=== PATIENT | male | born 1985 | race Hispanic/Latino ===

== ENCOUNTER 2016-08-22 14:54 | Emergency (ER) | payer MEDICARE ==
[~2016-08-22] VITALS: Ht 170.2 cm; Wt 109.5 kg
[~2016-08-22 14:54] MED LIST: CEPH-512 PO; IND40 PO; RISP3TAB PO; RISP4TAB PO; [UNRECOGNIZED DRUG - CODE] PO
[2016-08-22 15:06] VITALS: BP 167/101; PULSE 106; RESP 20; O2SAT 96
--- NOTE | 2016-08-22 15:51 | ED.REPORT ---
HPI-General Illness Date of Service Aug 22, 2016 ED Provider: Nursing Notes Stated Complaint: POSSIBLE ATRIAL FLUTTER, SENT FROM URGENT CARE Chief Complaint: Dysrhythmia/Cardiac Allergies: Coded Allergies: No Known Allergies (Unverified , 08/22/16) Scheduled Cephalexin (Keflex) 500 Mg Capsule 500 MG PO QID Propranolol-Expunged Drug, Do Not Renew! (Propranolol-Expunged Drug, Do Not Renew!) 40 Mg Tab 40 MG PO TID Your next dose of Ideral (Propranolol) 40mgm oral will tonight at bedtime. Risperidone-Expunged Drug, Do Not Renew! (Risperdal-Expunged Drug, Do Not Renew! ) 3 Mg Tablet 3 MG PO DAILY Your next Risperdal 3mgm oral dose will be tomorrow morning. Risperidone-Expunged Drug, Do Not Renew! (Risperdal-Expunged Drug, Do Not Renew! ) 4 Mg Tablet 4 MG PO HS Your next dose of Risperdal 4mgmn oral will be tonight at bedtime. Trazodone-Expunged Drug, Do Not Renew! (Trazodone-Expunged Drug, Do Not Renew!) 100 Mg Tablet 50 MG PO HS Your next dose of Desyrel (Trazodone) 50mgm oral will be tonight at bedtime. This dose can be repeated once during the night until 3AM, if needed for sleep. General Time Seen by MD: 15:51 Past Medical History Past Medical History Bipolar disorder Reports: Schizophrenia Past Surgical History None Family History Non-contributory Smoking History Unknown if Ever Smoker Social History Other Social History: Smokeless tobacco, Local resident Ambulatory Status Independent Physical Exam Vital Signs Vital Signs Date Time Temp Pulse Resp B/P Pulse Ox O2 Delivery O2 Flow Rate FiO2 08/22/16 15:06 36.6 106 20 167/101 96 Room Air Interpretation & Diagnostics Lab Results Interpretation Result Diagram: 08/22/16 1541 Test 08/22/16 15:41 White Blood Count 8.3th/mm3 (3.8-10.1) Red Blood Count 5.15mil/mm3 (4.40-5.80) Hemoglobin 15.1g/dL (13.8-17.2) Hematocrit 45.2% (41.0-50.0) Mean Corpuscular Volume 87.8fL (81-100) Mean Corpuscular Hemoglobin 29.3pg (27.0-35.0) Mean Corpuscular Hemoglobin Concent 33.4% (32.0-37.0) Red Cell Distribution Width 13.5% (12.3-15.4) Platelet Count 207bil/L (150-400) Neutrophils (%) (Auto) 62.5% (40-74) Lymphocytes (%) (Auto) 27.6% (14-46) Monocytes (%) (Auto) 7.7% (4-12) Eosinophils (%) (Auto) 1.6% (0-5) Basophils (%) (Auto) 0.1% (0-3) Hold [place] Top Tube Received (Received) Discharge & Departure Referrals: NOPCP (PCP) Nikky Feliciano MD Aug 22, 2016 15:51
[2016-08-22 15:56] LABS: BASOPHILS % (AUTO) 0.1 % (0-3); EOSINOPHILS % (AUTO) 1.6 % (0-5); MONOCYTES % (AUTO) 7.7 % (4-12); Mean Corpuscular Hemoglobin 29.3 pg (27.0-35.0); Mean Corpuscular Volume 87.8 fL (81-100); NEUTROPHILS % (AUTO) 62.5 % (40-74); Platelet Count 207 bil/L (150-400)
--- NOTE | 2016-08-22 16:08 | PCM.EDPN ---
ED Note Date of Service Aug 22, 2016 Patient initially seen in urgent care. We sent to the emergency room with concerns that he may be in atrial flutter. Was triaged and placed into room 1. At that point he became violent and very aggressive with our triage nurse and stormed out of the emergency department prior to being seen by emergency room provider. Clearly in no acute distress medically, speaking full sentences and able to walk without any difficulties Nikky Feliciano MD Aug 22, 2016 16:08
[2016-08-22 16:10] LABS: Magnesium 2.1 mg/dL (1.6-2.6)
== END 2016-08-22 16:14 | disposition left against medical advice (07) ==
LOC: SED 14:54
DX: Z53.21 Procedure and treatment not carried out due to patient leaving prior to being seen by health care provider (principal)

== ENCOUNTER 2016-09-21 01:46 | Emergency (ER) | payer MEDICARE ==
[~2016-09-21] VITALS: Ht 170.2 cm; Wt 110.5 kg
--- NOTE | 2016-09-21 01:50 | ED.REPORT ---
HPI-Extremity Problem Lower Date of Service Sep 21, 2016 ED Provider: Douglas Oconnor MD Patient is a 30 year old male with a history of schizophrenia, bipolar disorder and anxiety who presents to the ED with bilateral foot pain of unknown onset. Specifically he has pain at the soles of his feet, worse on the right than on the left. The states that he is not homeless but that he spends a lot of time walking. Due to his anxiety he always needs to be moving, so he takes really long walks. He walked from [place] to [facility] yesterday. Patient admits that he wears the same shoes everyday but he did change is socks yesterday. The patient is concerned that his feet have become infected. He also states that he has ingrown toenails and requests to have his toenails clipped. Nursing Notes Stated Complaint: LT/RT FOOT PAIN Nursing Notes Reviewed: Yes Allergies: Coded Allergies: No Known Allergies (Unverified , 08/22/16) Scheduled Cephalexin (Keflex) 500 Mg Capsule 500 MG PO QID Propranolol-Expunged Drug, Do Not Renew! (Propranolol-Expunged Drug, Do Not Renew!) 40 Mg Tab 40 MG PO TID Your next dose of Ideral (Propranolol) 40mgm oral will tonight at bedtime. Risperidone-Expunged Drug, Do Not Renew! (Risperdal-Expunged Drug, Do Not Renew! ) 3 Mg Tablet 3 MG PO DAILY Your next Risperdal 3mgm oral dose will be tomorrow morning. Risperidone-Expunged Drug, Do Not Renew! (Risperdal-Expunged Drug, Do Not Renew! ) 4 Mg Tablet 4 MG PO HS Your next dose of Risperdal 4mgmn oral will be tonight at bedtime. Trazodone-Expunged Drug, Do Not Renew! (Trazodone-Expunged Drug, Do Not Renew!) 100 Mg Tablet 50 MG PO HS Your next dose of Desyrel (Trazodone) 50mgm oral will be tonight at bedtime. This dose can be repeated once during the night until 3AM, if needed for sleep. General Time Seen by MD: 01:50 Chief Complaint Foot injury right, Foot injury left Hx Obtained From: Patient Arrived By: Walk-in Onset Occurred: Onset unknown Location: : Foot left: Foot right Quality: Painful Severity: Current: Moderate Severity: Maximum: Moderate Recent Healthcare: No recent doctor visit, No recent hospitalization Similar Sx Previous: Yes Past Medical History Past Medical History Bipolar disorder Anxiety Schizophrenia Past Surgical History None Family History Non-contributory Smoking History Unknown if Ever Smoker Social History Other Social History: Smokeless tobacco, Poor social support, Local resident Ambulatory Status Independent Review of Systems Constitutional: Denies: Chills, Fever Musculoskeletal: Reports: Extremity pain, Denies: Joint pain Complete sys rev & neg: except as marked. Physical Exam Initial Vital Signs Vital Signs (First) Date Time Temp Pulse Resp B/P Pulse Ox O2 Delivery O2 Flow Rate FiO2 09/21/16 01:51 36.3 119 18 140/95 97 Room Air Initial VS: Reviewed Skin: Warm, Dry, No cyanosis Neurologic: Alert, Oriented, Nonfocal Lower Extremity / Pelvis / MS: Full range of motion, Neurologic intact, Vascular intact Ankle / Foot: Neurologic intact, Vascular intact Patches of blister on his bilateral feet, hyperkeratotic and hyperhydrated. Present on the great toes, balls of the feet over the MTPs, and on the heels. Long toenails. General/Constitutional: Awake, Alert, No acute distress Appearance / Presentation: Positive: Obese Respiratory / Chest: No respiratory distress Cardiovascular: Heart rate NL, Peripheral circulation NL Skin: Warm, Dry Head / Eyes: Normocephalic, PERRL ENT: Airway patent Neck: Supple, Full range of motion Upper Extremity / MS: Full range of motion, No deformity Re-Eval/Medical Decision Med Decision/Clinical Course 30-year-old schizophrenia presents with wet immersion feet. These were allowed to dry with improvement here. He was given fresh socks, Goldbond powder, and is discharged in stable condition. He needs nail trimming, we do not have here sufficient to deal with his second nails. He is referred to podiatry clinic. Source of Hx: Old records Re-Evaluation/Progress : Time of Eval: 02:54 Patient Status: Condition improved Re-Evaluation/Progress Note: Patient was given new socks and let his feet dry. Patient understands and agrees with the plan to be discharged home. Discharge instructions and follow-up discussed. All questions were addressed. Return to the ED warnings given. Counseled Regarding: Diagnosis, Need for follow-up, When/why to return to ED Discharge & Departure Impression: Primary Impression: Trench feet Encounter type: initial encounter Laterality: unspecified laterality Qualified Code: T69.029A - Immersion foot, unspecified foot, initial encounter Additional Impression: Schizophrenia Disposition: Home Discharge Condition All VS Reviewed: Yes Condition: Stable Additional Instructions: It is important to keep your feet dry. Change socks if you get wet feet. Make sure you are shoes fit well and do not chafe your skin. You can use Gold Lal powder on your socks and in your shoes to keep your feet dry. Follow-up at podiatry clinic. Referrals: Julee Victoria DPM [facility] Scribe Attestation Portions of this note were transcribed by Jael Brandon. I, Dr. Oconnor personally performed the history, physical exam and medical decision-making; I reviewed and confirmed the accuracy of the information in the transcribed note. Signed by: Davin Alvarez, 09/21/2016 0256 copies to: Julee Victoria DPM; [facility] Douglas Oconnor MD Sep 21, 2016 01:50 Jael Brandon Sep 21, 2016 02:01
[2016-09-21 01:51] VITALS: BP 140/95; PULSE 119; RESP 18; O2SAT 97
== END 2016-09-21 02:59 | disposition home or self-care (01) ==
LOC: SED 01:46
DX: T69.021A Immersion foot, right foot, initial encounter (principal); T69.022A Immersion foot, left foot, initial encounter; X31.XXXA Exposure to excessive natural cold, initial encounter; Y92.9 Unspecified place or not applicable; Y93.01 Activity, walking, marching and hiking; Y99.8 Other external cause status; F20.9 Schizophrenia, unspecified; F31.9 Bipolar disorder, unspecified; F41.9 Anxiety disorder, unspecified

== ENCOUNTER 2016-09-30 18:56 | Emergency (ER) | payer MEDICARE ==
[~2016-09-30] VITALS: Ht 172.7 cm; Wt 112.7 kg
[2016-09-30 19:01] VITALS: BP 135/75; PULSE 126; RESP 16; O2SAT 95
--- NOTE | 2016-09-30 21:06 | ED.REPORT ---
HPI-Extremity Problem Lower Date of Service September 30, 2016 ED Provider: Mani Kapadia MD Pt is a 30 y.o. homeless male with a hx of schizophrenia and bipolar disorder who presents to the ED c/o ingrown toenails. Pt states he used to go [place]the mall" to get them clipped but has not been for a while and they are beginning to become painful. Pt has no further complaints at this time. Nursing Notes Stated Complaint: INGROWN TOENAILS Chief Complaint: Extremity Trauma Nursing Notes Reviewed: Yes Allergies: Coded Allergies: No Known Allergies (Unverified , 09/30/16) Scheduled Cephalexin (Keflex) 500 Mg Capsule 500 MG PO QID Propranolol-Expunged Drug, Do Not Renew! (Propranolol-Expunged Drug, Do Not Renew!) 40 Mg Tab 40 MG PO TID Your next dose of Ideral (Propranolol) 40mgm oral will tonight at bedtime. Risperidone-Expunged Drug, Do Not Renew! (Risperdal-Expunged Drug, Do Not Renew! ) 3 Mg Tablet 3 MG PO DAILY Your next Risperdal 3mgm oral dose will be tomorrow morning. Risperidone-Expunged Drug, Do Not Renew! (Risperdal-Expunged Drug, Do Not Renew! ) 4 Mg Tablet 4 MG PO HS Your next dose of Risperdal 4mgmn oral will be tonight at bedtime. Trazodone-Expunged Drug, Do Not Renew! (Trazodone-Expunged Drug, Do Not Renew!) 100 Mg Tablet 50 MG PO HS Your next dose of Desyrel (Trazodone) 50mgm oral will be tonight at bedtime. This dose can be repeated once during the night until 3AM, if needed for sleep. General Time Seen by : 21:06 Chief Complaint Other (Ingrown toenails) Hx Obtained From: Patient Arrived By: Walk-in Onset Occurred: Onset unknown Location: : Toe left 1: Toe left 2: Toe left 3: Toe left 4: Toe left 5: Toe right 1: Toe right 2: Toe right 3: Toe right 4: Toe right 5 Quality: Painful Severity: Current: Mild Recent Healthcare: No recent hospitalization Past Medical History Past Medical History Bipolar disorder Anxiety Schizophrenia Past Surgical History None Family History Non-contributory Smoking History Unknown if Ever Smoker Social History Other Social History: Smokeless tobacco, Poor social support, Local resident Ambulatory Status Independent Review of Systems Ingrown toenails Constitutional: Denies: Chills, Fever Complete sys rev & neg: except as marked. GI: Denies: Nausea, Vomiting Physical Exam Initial Vital Signs Vital Signs (First) Date Time Temp Pulse Resp B/P Pulse Ox O2 Delivery O2 Flow Rate FiO2 09/30/16 19:01 36.2 126 16 135/75 95 09/30/16 22:17 Room Air Initial VS: Reviewed, Vital signs abnormal Head / Eyes: Atraumatic, Normocephalic, PERRL Respiratory: Breath sounds normal, No respiratory distress Cardiovascular: Regular rate & rhythm, Intact distal pulses Abdomen / GI: No distention Upper Extremities: Vascular intact, Neuro intact Skin: Warm, Dry, No cyanosis Psychiatric: Mood/affect normal, Behavior normal, Normal thought content Lower Extremity / Pelvis / MS: Neurologic intact, Vascular intact Ankle / Foot: No deformity, Neurologic intact, Vascular intact Thickened and curved toenails, bilateral feet. General/Constitutional: Awake, Alert, No acute distress, Well appearing, Well developed, Well hydrated, Well nourished, Not toxic appearing Appearance / Presentation: Positive: Obese Neurologic: Oriented X3, Speech NL, No motor deficits Procedures Ingrown Toenail Removal Ingrown Toenail Removal: Clipping of thickened, curved and embedded toenails, bilateral feet. Time: 21:45 Procedure Performed by: ED physician Indication: Pain, Infection Consent / Setup / Site Prep: Consent from patient, Time-out performed, Hand hygiene observed Digit Involved: Great toe right, 2nd toe right, 3rd toe right, 4th toe right , 5th toe right, Great toe left, 2nd toe left, 3rd toe left, 4th toe left, 5th toe left Post-Procedure / Complications: No complications, Condition improved, Tolerated procedure well, Patient stable Re-Eval/Medical Decision Med Decision/Clinical Course 30-year-old male who presents for routine medical care of his thickened curling embedded nails. These were trimmed without incident. Source of Hx: Old records, EMS Re-Evaluation/Progress : Time of Eval: 21:45 Re-Evaluation/Progress Note: Procedure performed. Discussed plan for discharge, pt understands and agrees with plan. Counseled Regarding: Diagnosis, Lab results Discharge & Departure Impression: Primary Impression: Toenail fungus Additional Impressions: Dysplastic toenail Embedded toenail Hypertrophic toenail Incurved toenail Disposition: Home Discharge Condition All VS Reviewed: Yes Condition: Improved Additional Instructions: All of your nails were trimmed. Referrals: NOPCP (PCP) Davin Attestation Portions of this note were transcribed by Lazaro Reyez. I, personally performed the history, physical exam and medical decision-making; I reviewed and confirmed the accuracy of the information in the transcribed note. Signed by: Davin Becker, 09/30/16 and 2305. Mani Kapadia MD September 30, 2016 21:06 LAZARO REYEZ September 30, 2016 21:11
[2016-09-30 22:17] VITALS: BP 129/72; PULSE 102; RESP 16; O2SAT 97
== END 2016-09-30 22:17 | disposition home or self-care (01) ==
LOC: SED 18:56
DX: B35.1 Tinea unguium (principal); L60.2 Onychogryphosis; R23.9 Unspecified skin changes; Z86.59 Personal history of other mental and behavioral disorders

== ENCOUNTER 2016-12-03 18:30 | Emergency (ER) | payer MEDICARE ==
[~2016-12-03] VITALS: Ht 172.7 cm; Wt 111.4 kg
[2016-12-03 18:39] VITALS: BP 113/65; PULSE 115; RESP 14; O2SAT 93
--- NOTE | 2016-12-03 18:55 | ED.REPORT ---
HPI-General Illness Date of Service Dec 03, 2016 ED Provider: Dr. Tulio Meza Patient is a 30 year old male with a history of schizophrenia, bipolar disorder and anxiety who presents to the ED via EMS after being found intoxicated laying on the road in front of [place] house. Associated symptoms include slurred speech. Nursing Notes Stated Complaint: INTOXICATED Chief Complaint: Substance Abuse Nursing Notes Reviewed: Yes Allergies: Coded Allergies: No Known Allergies (Unverified , 12/03/16) Scheduled Cephalexin (Keflex) 500 Mg Capsule 500 MG PO QID Propranolol-Expunged Drug, Do Not Renew! (Propranolol-Expunged Drug, Do Not Renew!) 40 Mg Tab 40 MG PO TID Your next dose of Ideral (Propranolol) 40mgm oral will tonight at bedtime. Risperidone-Expunged Drug, Do Not Renew! (Risperdal-Expunged Drug, Do Not Renew! ) 3 Mg Tablet 3 MG PO DAILY Your next Risperdal 3mgm oral dose will be tomorrow morning. Risperidone-Expunged Drug, Do Not Renew! (Risperdal-Expunged Drug, Do Not Renew! ) 4 Mg Tablet 4 MG PO HS Your next dose of Risperdal 4mgmn oral will be tonight at bedtime. Trazodone-Expunged Drug, Do Not Renew! (Trazodone-Expunged Drug, Do Not Renew!) 100 Mg Tablet 50 MG PO HS Your next dose of Desyrel (Trazodone) 50mgm oral will be tonight at bedtime. This dose can be repeated once during the night until 3AM, if needed for sleep. General Time Seen by MD: 18:54 Chief Complaint Other (intoxication) Hx Obtained From: Patient Arrived By: Ambulance Sudden in Onset?: Yes Onset Occurred: Just prior to arrival Symptom Duration: Since onset Recent Healthcare: No recent doctor visit, No recent hospitalization Similar Sx Previous: No Past Medical History Past Medical History Bipolar disorder Anxiety Schizophrenia Past Surgical History None Family History Non-contributory Smoking History Unknown if Ever Smoker Social History Other Social History: Smokeless tobacco, Poor social support, Local resident Ambulatory Status Independent Review of Systems Unable to Obtain ROS Patient condition, Intoxicated Physical Exam Vital Signs Vital Signs Date Time Temp Pulse Resp B/P Pulse Ox O2 Delivery O2 Flow Rate FiO2 12/03/16 23:57 110 15 107/60 99 Room Air 7/4/17 18:39 37.3 115 14 113/65 93 Room Air Initial VS: Reviewed Alertness: Positive: Sleeping but arousable minimally responsive Head / Eyes: Normocephalic, PERRL blank stare ENT: Atraumatic, Airway patent, Mucous membranes moist Neck: Atraumatic, Supple Respiratory / Chest: Atraumatic, Breath sounds NL, Breath sounds = bilat, No respiratory distress Cardiovascular: Heart rate NL, Regular rhythm, Heart sounds NL, No gallop, No murmurs Abdomen: Atraumatic, Soft, Non-tender Upper Extremities Upper Extremity / MS: Atraumatic, Inspection NL, No deformity Lower Extremity / Pelvis / MS: Atraumatic, Inspection NL, No deformity Skin: Atraumatic, Warm, Dry Interpretation & Diagnostics Lab Results Interpretation Result Diagram: 12/03/16191112/03/161911 Test 12/03/16 19:12 12/03/16 21:10 12/04/16 01:00 White Blood Count 6.7th/mm3 (3.8-10.1) Red Blood Count 4.72mil/mm3 (4.40-5.80) Hemoglobin 13.9g/dL (13.8-17.2) Hematocrit 41.3% (41.0-50.0) Mean Corpuscular Volume 87.5fL (81-100) Mean Corpuscular Hemoglobin 29.4pg (27.0-35.0) Mean Corpuscular Hemoglobin Concent 33.7% (32.0-37.0) Red Cell Distribution Width 13.6% (12.3-15.4) Platelet Count 212bil/L (150-400) Neutrophils (%) (Auto) 58.8% (40-74) Lymphocytes (%) (Auto) 31.6% (14-46) Monocytes (%) (Auto) 7.9% (4-12) Eosinophils (%) (Auto) 1.3% (0-5) Basophils (%) (Auto) 0.1% (0-3) Sodium Level 142mEq/L (134-144) Potassium Level 4.3mEq/L (3.5-5.2) Chloride Level 104mEq/L (97-108) Carbon Dioxide Level 22mmol/L (18-29) Blood Urea Nitrogen 10mg/dL (6-20) Creatinine 0.75mg/dL (0.76-1.27) Estimat Glomerular Filtration Rate 129mL/min (>59) Glucose Level 113mg/dL (60-99) Calcium Level 9.2mg/dL (8.5-10.1) Total Bilirubin 0.5mg/dL (0.0-1.2) Aspartate Amino Transf (AST/SGOT) 28U/L (0-50) Alanine Aminotransferase (ALT/SGPT) 50U/L (0-44) Alkaline Phosphatase 122U/L (25-150) Total Protein 7.6g/dL (6.4-8.4) Albumin 4.2g/dL (3.4-5.0) Alcohols 168mg/dL (0-10) Hold Urine Received (Received) Lab Results Interpretation: UA: Methamphetamine positive CT Head Interpretation IMPRESSION: normal Ct of the head without contrast Study: Head CT no contrast Interpretation / Wet Read by: Interpret - Radiologist Re-Eval/Medical Decision Med Decision/Clinical Course 31-year-old male presents with altered mental status. He is found to be intoxicated. He did not seem to sober up over the first 3-4 hours we scan his brain and it was normal. Urine drug triage positive for amphetamines. At 12: 30 the morning he is more arousable. He will answer one to 2 questions and falls asleep. I suspect degenerative the influence of some sort of drugs that are not showing up on our testing. Remainder of diagnostics are reassuring. Case will be signed out to Dr. Kapadia at the conclusion of my shift. I think that when he guillermina up if he looks well he can be discharged home. At 1:10 AM Billy is much more sober and lucid. He has no recollection as to what happened tonight but he does admit to drinking. He is not yet clinically sober for discharge however. Time of Eval: 20:11 Re-Evaluation/Progress Note: Pt checked. He is sleeping in the room and minimally responsive. Alcohol level is 168H. Plan for head CT. Counseled Regarding: Diagnosis, Lab results, Need for follow-up, When/why to return to ED Discharge & Departure Shift Change Sign-Out Patient Care Transferred: Yes Discussed Complaint(s): Yes Laboratory Evaluation: Lab evaluation discussed Input from Consult: He may need a bilingual social worker evaluation when he is sober and lucid Response to Therapy: Improved Primary Impression: Alcohol abuse Additional Impression: Methamphetamine abuse Disposition: Home Discharge Condition All VS Reviewed: Yes Condition: Stable Patient Instructions: Alcohol Dependence (GEN), Methamphetamine Abuse (GEN) Additional Instructions: Thank you for entrusting us with your care today. Your head catscan is normal with no acute findings. I highly recommend you stop using methamphetamines. Follow up with your primary care physician in the next week. Return to the Emergency Department for any new or worsening symptoms. Do not drive tonight. Do not abuse alcohol. Follow-up with primary care and with [facility]. Referrals: NOPCP (PCP) [facility] Alcoholics Anonymous (AA) [facility] Scribe Attestation Portion of this note were transcribed by Jen Uriostegui. I, Dr. Meza, personally performed the history, physical exam, and medical decision-making: I reviewed and confirmed the accuracy for the information in the transcribed note. Signed by: kervin Nicole, 12/03/16 2100 copies to: [facility] Tulio Meza DO Dec 03, 2016 18:55 Jen Uriostegui Dec 03, 2016 19:45
[2016-12-03 19:20] LABS: BASOPHILS % (AUTO) 0.1 % (0-3); EOSINOPHILS % (AUTO) 1.3 % (0-5); MONOCYTES % (AUTO) 7.9 % (4-12); Mean Corpuscular Hemoglobin 29.4 pg (27.0-35.0); Mean Corpuscular Volume 87.5 fL (81-100); NEUTROPHILS % (AUTO) 58.8 % (40-74); Platelet Count 212 bil/L (150-400)
[2016-12-03 23:57] VITALS: BP 107/60; PULSE 110; RESP 15; O2SAT 99
[2016-12-04 02:14] VITALS: BP 138/80; PULSE 103; RESP 18; O2SAT 96
--- NOTE | 2016-12-04 11:18 | DRSVH ---
PROCEDURE: CT BRAIN WITHOUT CONTRAST ([id number]) INDICATIONS: altered mental status, found down TECHNIQUE: Noncontrast 4.5 mm thick angled axial sections acquired from the foramen magnum to the vertex, with c oronal reformats. COMPARISON: None. FINDINGS: Image quality: Excellent. CSF spaces: Basal cisterns are patent. No extra-axial fluid collections. Ventricles are normal in size and shape. Brain: No midline shift. No intracranial masses or hemorrhage. Boyd-white matter interface is norm al. Skull and face: Calvarium and visualized facial bones are intact, without suspicious lesions. Sinuses: Visualized sinuses and mastoids are clear. IMPRESSION: 1. No acute intracranial abnormalities. No significant discrepancy with the night shift manager radiology preliminary report. Dictated by: Alfredo Paitno M.D. on 12/04/2016 at 7:48 Approved by: Alfredo Patino M.D. on 12/04/2016 at 7:49
== END 2016-12-04 02:15 | disposition home or self-care (01) ==
LOC: EDBD 18:30 → SED 18:30 → EDUNIT# 18:30 → SED 12-04 02:15
DX: F10.120 Alcohol abuse with intoxication, uncomplicated (principal); F15.20 Other stimulant dependence, uncomplicated; F20.9 Schizophrenia, unspecified; F31.9 Bipolar disorder, unspecified; F41.9 Anxiety disorder, unspecified
CPT/HCPCS: 36415; 70450; 80053; 82948; 85025; 99284; G0480

== ENCOUNTER 2017-02-08 03:09 | Emergency (ER) | payer MEDICARE, MEDICAID ==
[~2017-02-08] VITALS: Ht 172.7 cm; Wt 100.0 kg
[2017-02-08 03:29] VITALS: BP 133/86; PULSE 133; RESP 12; O2SAT 97
--- NOTE | 2017-02-08 03:36 | ED.REPORT ---
HPI-Ear Pain/Problem/FB Date of Service Feb 08, 2017 ED Provider: Douglas Oconnor MD A 31 year old male with a history of methamphetamine abuse, bipolar disorder, schizophrenia, heart murmur and anxiety presents to the ED complaining of left earlobe pain. The pt pierced his own ear two days ago, and soon noticed swelling and discharge of the earlobe. He was seen for this pain in Urgent Care and was prescribed antibiotics and some ointment. He has been applying ointment to the area since that point but did not grape picker his antibiotic prescription. He does not remember what this prescription was. The ear has continued to be painful, but the pt reports reduced discharge since this morning. Nursing Notes Stated Complaint: LEFT EAR PAIN Chief Complaint: ENT & Mouth Nursing Notes Reviewed: Yes Allergies: Coded Allergies: No Known Allergies (Unverified , 12/03/16) Scheduled Cephalexin (Keflex) 500 Mg Capsule 500 MG PO QID Propranolol-Expunged Drug, Do Not Renew! (Propranolol-Expunged Drug, Do Not Renew!) 40 Mg Tab 40 MG PO TID Your next dose of Ideral (Propranolol) 40mgm oral will tonight at bedtime. Risperidone-Expunged Drug, Do Not Renew! (Risperdal-Expunged Drug, Do Not Renew! ) 3 Mg Tablet 3 MG PO DAILY Your next Risperdal 3mgm oral dose will be tomorrow morning. Risperidone-Expunged Drug, Do Not Renew! (Risperdal-Expunged Drug, Do Not Renew! ) 4 Mg Tablet 4 MG PO HS Your next dose of Risperdal 4mgmn oral will be tonight at bedtime. Trazodone-Expunged Drug, Do Not Renew! (Trazodone-Expunged Drug, Do Not Renew!) 100 Mg Tablet 50 MG PO HS Your next dose of Desyrel (Trazodone) 50mgm oral will be tonight at bedtime. This dose can be repeated once during the night until 3AM, if needed for sleep. General Time Seen by MD: 03:19 Chief Complaint Ear problem left Hx Obtained From: Patient Arrived By: Walk-in Onset Occurred: 2 days ago Symptom Duration: Since onset Recent Healthcare: Recent doctor visit Similar Sx Previous: No Past Medical History Past Medical History Bipolar disorder Anxiety Schizophrenia Past Surgical History None reported Family History Non-contributory Smoking History Unknown if Ever Smoker Social History Drug Use: Meth Other Social History: Smokeless tobacco, Poor social support, Local resident Ambulatory Status Independent Review of Systems Review of Systems Note: left earlobe pain, swelling and drainage Complete sys rev & neg: except as marked. Additional Review of Systems Respiratory: Denies: Non-productive cough, Shortness of breath Cardiovascular: Denies: Chest pain GI: Denies: Abdominal pain, Vomiting Musculoskeletal: Denies: Back pain, Neck pain Physical Exam Initial Vital Signs Vital Signs (First) Date Time Temp Pulse Resp B/P Pulse Ox O2 Delivery O2 Flow Rate FiO2 02/08/17 03:29 37.1 133 12 133/86 97 Room Air Initial VS: Reviewed General/Constitutional: Awake, Alert ENT: Airway patent, Mucous membranes moist swollen, tender left earlobe draining puncture wound on the posterior surface indurated without purulent material Head / Eyes: Atraumatic, Normocephalic, PERRL, EOMI Neck: Atraumatic, Supple, Full range of motion Respiratory / Chest: Atraumatic, Breath sounds NL, Breath sounds = bilat, No respiratory distress Cardiovascular: Heart rate NL, Regular rhythm, Heart sounds NL Skin: Color NL, Warm, Dry Neurologic: Oriented X3, Speech NL, No motor deficits, No sensory deficits Abdomen: Atraumatic, Soft, Non-tender Back: Atraumatic, Full range of motion Upper Extremity / MS: Atraumatic, Full range of motion Lower Extremity / Pelvis / MS: Atraumatic, Full range of motion Psychiatric: Affect NL, Mood NL Re-Eval/Medical Decision Med Decision/Clinical Course 31-year-old with small abscess complicating ear piercing. This been draining and is stable. Restarted with Keflex although he is not certain about which antibiotic he was actually prescribed. Hot soaks and ointment 3 times a day. Follow-up with PCP. Source of Hx: Old records Re-Evaluation/Progress : Time of Eval: 03:45 Patient Status: Condition improved Re-Evaluation/Progress Note: Pt rechecked, who is comfortable. The diagnosis and plan for discharge are discussed. The pt understands and agrees with the plan. All questions are addressed at this time. Counseled Regarding: Diagnosis, Need for follow-up, When/why to return to ED Discharge & Departure Primary Impression: Cellulitis of earlobe Laterality: left Qualified Code: H60.12 - Cellulitis of left external ear Additional Impression: Methamphetamine abuse Disposition: Home Discharge Condition All VS Reviewed: Yes Condition: Stable Patient Instructions: Cellulitis (ED) Additional Instructions: Apply a hot wet soaks to the earlobe three times daily, then ointment after that. Begin Keflex three times daily for ten days. Follow-up with your doctor in the office. Return if any immediate issues. Referrals: NOPCP (PCP) Scribe Attestation Portions of this note were transcribed by Gaetano Valerio. I, Dr. Oconnor personally performed the history, physical exam and medical decision-making; I reviewed and confirmed the accuracy of the information in the transcribed note. Douglas Oconnor MD Feb 08, 2017 03:36 GAETANO VALERIO Feb 08, 2017 03:46
[2017-02-08 04:02] VITALS: PULSE 111
[2017-02-08] MEDS ORDERED: _Cephalexin 500 mg Capsule PO SCH (08:30)
== END 2017-02-08 04:03 | disposition home or self-care (01) ==
LOC: SED 03:09
DX: H60.12 Cellulitis of left external ear (principal); F15.10 Other stimulant abuse, uncomplicated; F31.9 Bipolar disorder, unspecified; F20.9 Schizophrenia, unspecified; F41.9 Anxiety disorder, unspecified